=== PATIENT | male | born 1985 | race Caucasian/White ===

== ENCOUNTER 2024-01-07 18:20 | Emergency (ER) | payer OTHER ==
[~2024-01-07] VITALS: Ht 188 cm; Wt 95.3 kg
[2024-01-07] MEDS ORDERED: LIDOCAINE 1%-EPI 1:100,000 20 ML VIAL ONE (19:39)
[2024-01-07] MEDS ORDERED: SODIUM BICARBONATE 4.2 % (NEUT) 5 ML VIAL ONE (19:39)
[2024-01-07] MEDS ORDERED: TDAP DIPH,PERTUSS,TET VAC/PF 0.5 ML DISP.SYRIN IM ONE (19:39)
[2024-01-07] MEDS ORDERED: LIDOCAINE HCL 1% 20 ML VIAL ONE (19:40)
[2024-01-07] MEDS ORDERED: CEFTRIAXONE 1 G VIAL ONE (19:40)
[2024-01-07] MEDS: TDAP DIPH,PERTUSS,TET VAC/PF 0.5 ML DISP.SYRIN IM ONE (19:54)
[2024-01-07] MEDS: LIDOCAINE 1%-EPI 1:100,000 20 ML VIAL IJ ONE (19:54)
[2024-01-07] MEDS: SODIUM BICARBONATE 4.2 % (NEUT) 5 ML VIAL TP ONE (19:54)
[2024-01-07] MEDS: CEFTRIAXONE 1 G VIAL IM ONE (19:54)
[2024-01-07] MEDS ORDERED: ACETAMINOPHEN 500 MG TABLET ONE (21:05)
[2024-01-07] MEDS: ACETAMINOPHEN 500 MG TABLET PO ONE (21:06)
[2024-01-07] MEDS ORDERED: CEPH500T PO (21:20)
[2024-01-07 21:26] VITALS: BP 140/85; O2SAT 99
== END 2024-01-07 21:26 | disposition home or self-care (01) ==
LOC: ER 18:20
DX: S81.012A Laceration without foreign body, left knee, initial encounter (principal); S51.012A Laceration without foreign body of left elbow, initial encounter; F17.210 Nicotine dependence, cigarettes, uncomplicated; W11.XXXA Fall on and from ladder, initial encounter; Y93.89 Activity, other specified; Y92.89 Other specified places as the place of occurrence of the external cause; Y99.8 Other external cause status
CPT/HCPCS: 12001; 13121; 73080; 73564; 90471; 90715; 96372; 99285; 99406; J0696; J3490; A4606; A4663; A9150